=== PATIENT | male | born 1970 | race Caucasian/White ===

== ENCOUNTER 2020-09-27 11:52 | Emergency (ER) | payer OTHER ==
--- NOTE | 2020-09-27 13:01 | RAD ---
EXAM: Chest PA and lateral: HISTORY: Fever. Shortness of breath. COMPARISON: 12/30/2003 FINDINGS: Heart: Normal cardiac silhouette Aorta: Unremarkable Pulmonary vessels: Normal Costophrenic angles: Costophrenic angles are clear. Lungs: No consolidation or masses. Pneumothorax: No pneumothorax Osseous structures: No osseous abnormalities. Incompletely evaluated cervical fusion hardware. IMPRESSION: No acute cardiopulmonary process.
[2020-09-28 13:38] LABS: SARS-CoV-2 PCR by NAA Not Detected (NotDetected)
== END 2020-09-27 13:10 | disposition home or self-care (01) ==
LOC: NAV ERS 11:52
DX: R50.9 Fever, unspecified (principal); R53.83 Other fatigue; Z20.822 Contact with and (suspected) exposure to COVID-19; I10 Essential (primary) hypertension; F17.220 Nicotine dependence, chewing tobacco, uncomplicated
CPT/HCPCS: 71046; 87635; U0003; U0005

== ENCOUNTER 2021-01-16 12:08 | Emergency (ER) | payer OTHER | END 2021-01-16 13:52 | disposition home or self-care (01) | LOC: NAV ERS 12:08 | DX: M19.021 Primary osteoarthritis, right elbow (principal); I10 Essential (primary) hypertension; F17.220 Nicotine dependence, chewing tobacco, uncomplicated | CPT/HCPCS: 84550 ==

== ENCOUNTER 2021-03-29 12:03 | Emergency (ER) | payer OTHER | END 2021-03-29 12:32 | disposition home or self-care (01) | LOC: NAV ERS 12:03 | DX: H61.21 Impacted cerumen, right ear (principal); I10 Essential (primary) hypertension; F17.220 Nicotine dependence, chewing tobacco, uncomplicated | CPT/HCPCS: 69209 ==